=== PATIENT | male | born 1990 | race Hispanic/Latino ===

== ENCOUNTER 2017-12-24 11:46 | Emergency (ER) | payer SELFPAY | END 2017-12-24 12:12 | disposition home or self-care (01) | LOC: EDH 11:46 | DX: S01.21XA Laceration without foreign body of nose, initial encounter (principal); S06.0X9A Concussion with loss of consciousness of unspecified duration, initial encounter; Z88.1 Allergy status to other antibiotic agents; Z98.890 Other specified postprocedural states; X58.XXXA Exposure to other specified factors, initial encounter; Y93.89 Activity, other specified; Y92.098 Other place in other non-institutional residence as the place of occurrence of the external cause; Y99.8 Other external cause status ==